=== PATIENT | male | born 2000 | race Caucasian/White ===

== ENCOUNTER 2019-12-27 12:57 | Emergency (ER) | payer BC ==
[2019-12-27] MEDS ORDERED: Lidocaine 1% 20 ML MDV INJECT ONE (13:46)
[2019-12-27] MEDS ORDERED: Diphtheria,Pertussis(Acell),Tetanus Vaccine 0.5 ML SDV IM ONE (13:46)
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
[2019-12-27] MEDS ORDERED: Bacitracin Oint 28.35 GM Tube TOP SCH (14:00)
--- NOTE | 2019-12-28 10:39 | CR ---
FOOT RIGHT 3 views CLINICAL HISTORY:Laceration FINDINGS:Patient is a transverse displaced fracture of the fifth proximal phalanx. Impression: Displaced fracture fifth proximal phalanx
== END 2019-12-27 16:10 | disposition home or self-care (01) ==
LOC: JP.ED 12:57
DX: S92.511A Displaced fracture of proximal phalanx of right lesser toe(s), initial encounter for closed fracture (principal); S91.124A Laceration with foreign body of right lesser toe(s) without damage to nail, initial encounter; Z23 Encounter for immunization; Z79.899 Other long term (current) drug therapy; V94.9XXA Unspecified water transport accident, initial encounter
CPT/HCPCS: 12042; 73630; 90471; 90715; 99283; A9270; J2001